=== PATIENT | male | born 1975 ===

== ENCOUNTER 2021-05-18 12:24 | Emergency (ER) | payer MEDICAID, SELFPAY ==
[2021-05-18 12:34] VITALS: BP 144/70; PULSE 73; RESP 19; TEMP 36.3; O2SAT 95; BMI 22.1
[2021-05-18 12:51] LABS: MANUAL DIFF FLAG NO
[2021-05-18 12:53] LABS: Appearance Urine HAZY; Basophils Percent Auto 0.4 % (0-2); Color Urine YELLOW; Eosinophils Absolute Auto 0.1 X10*3/uL (0.0-0.4); Eosinophils Percent Auto 1.3 % (0-4); Glucose Urine UA NEG (NEG); Hematocrit 44.5 % (42.0-52.0); Hemoglobin 14.8 g/dl (14.0-18.0); Imm Gran Abs Auto 0.03 X10*3/uL (0.00-0.03); Imm Gran Pct Auto 0.4 % (0.0-0.4); Leukocyte Esterase Urine NEG (NEG); Lymphocytes Absolute Auto 2.2 X10*3/uL (1.2-4.9); Lymphocytes Percent Auto 25.9 % (20-40); Mean Corpuscular HGB Conc 33.3 g/dl (31.0-36.0); Mean Corpuscular Hemoglobin 29.4 pg (27.0-33.0); Mean Corpuscular Volume 88.5 fL (80.0-98.0); Mean Platelet Volume 9.7 fL (9.4-12.4); Monocytes Absolute Auto 0.6 X10*3/uL (0.1-1.2); Monocytes Percent Auto 7.2 % (2-11); Neutrophils Absolute Auto 5.4 x10*3/uL (2.0-8.3); Neutrophils Percent Auto 64.8 % (45-73); Nitrite Urine NEG (NEG); PH 6.5 (5.0-8.0); Platelet Count 224 X10*3/uL (160-400); Red Blood Count 5.03 X10*6/uL (4.60-5.80); Specific Gravity - Urine <= 1.005 (1.005-1.025); UACC Culture Trigger NO; Urine Blood 3+ (NEG); Urine Ketones NEG (NEG); Urine Protein TRACE MG/DL (NEG-TRACE); White Blood Count 8.3 X10*3/uL (4.8-10.8)
[2021-05-18 13:01] LABS: Squamous Epithelial Cell Urine TRACE /LPF
[2021-05-18 13:02] LABS: RBC Urine TNTC /HPF (0); WBC Urine 0 /HPF (0-4)
[2021-05-18 13:07] LABS: Alanine Aminotransferase 15 U/L (0-40); Albumin Level 3.9 g/dL (3.5-5.0); Alkaline Phosphatase 86 U/L (39-117); Anion Gap 13 (12-20); Aspartate Amino Transferase 17 U/L (5-37); Bilirubin Total 0.5 mg/dL (0.0-1.0); Blood Urea Nitrogen 8 mg/dL (9-16); Calcium 9.5 mg/dL (8.4-10.2); Carbon Dioxide 26 mmol/L (22-29); Chloride 105 mmol/L (96-108); Creatinine Clr Calc Pharmacy 110.6; Estimated Glomerular Filt Rate > 60; Glucose Random 113 mg/dL (60-115); Lipase 16 U/L (8-78); Potassium 4.2 mmol/L (3.3-5.1); Sodium 140 mmol/L (135-145); Total Protein 6.6 g/dL (6.5-8.0)
--- NOTE | 2021-05-18 18:02 | PC.NURSE ---
PATIENT EXPERIENCE TECH IN TO SEE THIS ASSISTANT PRESS OPERATOR OFFSET REGARDING CHAPITO MARROQUIN AND WHEN HE WOULD BE PLACED IN A BED. THIS RN TOLD HER THAT WE WERE CLEANING A BED WE SPEAK AND HE WILL BE IN VERY SHORTLY. PT EXPERIENCE STAFF MEMBER WENT TO GET PATIENT AND PATIENT REPORTED THAT HE WAS NOT STAYING. PT EXPERIENCE STAFF MEMBER TRIED TO GET PATIENT TO STAY, SAYING YOU WILL BE GOING INTO THE ED RIGHT NOW . PT DECLINED TO STAY.
== END 2021-05-18 18:30 | disposition left against medical advice (07) ==
PROVIDERS: Emergency Provider Emergency Medicine; PCP Internal Medicine
DX: R31.9 Hematuria, unspecified (principal); R10.13 Epigastric pain; Z79.899 Other long term (current) drug therapy
CPT/HCPCS: 36415; 80053; 81001; 83690; 85025; 99282; 99283